=== PATIENT | female | born 1990 | race African-American/Black ===

== ENCOUNTER 2018-04-10 17:02 | Inpatient (IN) | payer OTHER ==
[2018-04-10 17:44] VITALS: BMI 42.9
--- NOTE | 2018-04-10 20:32 | HP ---
CIWA Score - CIWA Score Nausea/Vomitin Muscle Tremors: 4-Moderate,w/Arms Extend Anxiety: 4-Mod. Anxious/Guarded Agitation: 1-Slight > Activity Paroxysmal Sweats: No Perspiration Orientation: 0-Oriented Tacttile Disturbances: 0-None Auditory Disturbances: 0-None Visual Disturbances: 0-None Headache: 4-Moderately Severe CIWA-Ar Total Score: 15 Admission ROS S - HPI Chief Complaint: alcohol withdrawal symptoms Allergies/Adverse Reactions: Allergies Allergy/AdvReac Type Severity Reaction Status Date / Time No Known Allergies Allergy Verified 04/10/18 20:27 History of Present Illness: 28 years old female with 10 years history of alcohol dependence is seeking admission to detox. Patient has been to previous detox at [facility]. Reports 5 years of sobriety. Patient has medical history of HIV+, depression, anxiety, insomnia, scoliosis and hypertension. Reports suicide attempt in 2010. Denies suicidal and homicidal ideation at this time. Exam Limitations: No Limitations - Ebola screening Have you traveled outside of the country in the last 21 days: No Have you had contact with anyone from an Ebola affected area: No Have you been sick,other than usual withdrawal symptoms: No Do you have a fever: No - Review of Systems Constitutional: Chills, Loss of Appetite, Malaise, Changes in sleep EENT: reports: No Symptoms Reported Respiratory: reports: No Symptoms reported Cardiac: reports: No Symptoms Reported GI: reports: No Symptoms Reported : reports: No Symptoms Reported Musculoskeletal: reports: Joint Pain, Muscle Pain Integumentary: reports: Dryness, Flushing Neuro: reports: Headache, Tremors Endocrine: reports: No Symptoms Reported Hematology: reports: No Symptoms Reported Psychiatric: reports: Anxious, Depressed Other Systems: Reviewed and Negative Patient History - Patient Medical History Hx Anemia: No Hx Asthma: No Hx Chronic Obstructive Pulmonary Disease (COPD): No Hx Cancer: No Hx Cardiac Disorders: No Hx Congestive Heart Failure: No Hx Hypertension: Yes (Not on medication) Hx Hypercholesterolemia: No Hx Pacemaker: No HX Cerebrovascular Accident: No Hx Seizures: No Hx Dementia: No Hx Diabetes: No Hx Gastrointestinal Disorders: No Hx Liver Disease: No Hx Genitourinary Disorders: No Hx Sexually Transmitted Disorders: No Hx Renal Disease (ESRD): No Hx Thyroid Disease: No Hx Human Immunodeficiency Virus (HIV): Yes (HIV+ 2007) Hx Hepatitis C: No Hx Depression: Yes (Not on medication) Hx Suicide Attempt: Yes (Attempt in 2010. Denies suicidal ideation at this time) Hx Bipolar Disorder: No Hx Schizophrenia: No Other Medical History: Scoliosis, Anxiety- Not on medication - Patient Surgical History Past Surgical History: Yes Hx Neurologic Surgery: No Hx Cataract Extraction: No Hx Cardiac Surgery: No Hx Lung Surgery: No Hx Breast Surgery: No Hx Breast Biopsy: No Hx Abdominal Surgery: No Hx Appendectomy: No Hx Cholecystectomy: No Hx Genitourinary Surgery: No Hx Section: Yes (2008 and 2009) Hx Orthopedic Surgery: No Hx Hysterectomy: No Anesthesia Reaction: No - PPD History Previous Implant?: Yes Documented Results: Negative w/o proof Implanted On Prior [facility] Admission?: No PPD to be Administered?: Yes - Reproductive History Patient is a Female of Child Bearing Age (11 -55 yrs old): No (Male) Patient : No - Smoking Cessation Smoking history: Current every day smoker Have you smoked in the past 12 months: Yes Aproximately how many cigarettes per day: 20 Hx Chewing Tobacco Use: No Initiated information on smoking cessation: Yes 'Breaking Loose' booklet given: 04/10/18 - Substance & Tx. History Hx Alcohol Use: Yes Hx Substance Use: Yes Substance Use Type: Alcohol, Marijuana, Opiates Hx Substance Use Treatment: Yes ([facility] - Substances Abused Alcohol Route: Oral Frequency: Daily Amount used: VODKA - 2 QUARTS Age of first use: 15 Date of Last Use: 04/10/18 Marijuana/Hashish Route: Smoking Frequency: 3-6 times per week Amount used: $20 Age of first use: 11 Date of Last Use: 04/10/18 Family Disease History - Family Disease History Family Disease History: Heart Disease: Mother (Intestitial lung disease- ), Respiratory: Mother, Other: Father (MS) Admission Physical Exam BHS - Vital Signs Vital Signs: Vital Signs - 24 hr 04/10/18 17:38 Temperature 97.8 F Pulse Rate 67 Respiratory 18 Rate Blood Pressure 147/86 - Physical General Appearance: Yes: Moderate Distress HEENTM: Yes: EOMI, Normal ENT Inspection, Normocephalic, Normal Voice, LEANDER Respiratory: Yes: Lungs Clear, Normal Breath Sounds, No Respiratory Distress Neck: Yes: Supple Breast: Yes: Breast Exam Deferred Cardiology: Yes: Regular Rhythm, Regular Rate, S1, S2 Abdominal: Yes: Normal Bowel Sounds, Soft Genitourinary: Yes: Within Normal Limits Back: Yes: Normal Inspection Musculoskeletal: Yes: Muscle Pain, Muscle weakness Extremities: Yes: Tremors Neurological: Yes: Alert, Normal Mood/Affect Integumentary: Yes: Warm Lymphatic: Yes: Within Normal Limits - Diagnostic (1) Alcohol dependence with uncomplicated withdrawal Current Visit: Yes Status: Chronic (2) Cannabis dependence, uncomplicated Current Visit: Yes Status: Chronic (3) HIV (human immunodeficiency virus infection) Current Visit: Yes Status: Chronic (4) HTN (hypertension) Current Visit: Yes Status: Chronic Qualifiers: Hypertension type: essential hypertension Qualified Code(s): I10 - Essential (primary) hypertension (5) Depression Current Visit: Yes Status: Chronic Qualifiers: Depression Type: unspecified Qualified Code(s): F32.9 - Major depressive disorder, single episode, unspecified (6) Anxiety Current Visit: Yes Status: Chronic (7) Scoliosis Current Visit: Yes Status: Chronic (8) Insomnia Current Visit: Yes Status: Chronic Cleared for Admission [facility] - Detox or Rehab [facility] Level of Care: Medically Managed Detox Regimen/Protocol: Librium [facility] Breath Alcohol Content Breath Alcohol Content: 0 Urine Pregancy Test - Result Urine Test Results: Negative- NO Line Present Urine Drug Screen - Results Drug Screen Negative: No Urine Drug Screen Results: THC-Marijuana, MTD-Methadone
[2018-04-10] MEDS ORDERED: NICOTINE POLACRILEX 2 MG GUM BC PRN (20:52)
[2018-04-10] MEDS ORDERED: LOPERAMIDE HCL 2 MG CAPSULE PO PRN (20:52)
[2018-04-10] MEDS ORDERED: ACETAMINOPHEN 325 MG TABLET (FP) PO PRN (20:52)
[2018-04-10] MEDS ORDERED: MAGNESIUM CITRATE 300 ML BOTTLE PO PRN (20:52)
[2018-04-10] MEDS ORDERED: IBUPROFEN 400 MG TABLET (FP) PO PRN (20:52)
[2018-04-10] MEDS ORDERED: guaiFENesin/D-METHORPHAN HB 10 ML UNIT-DOSE CUPS PO PRN (20:52)
[2018-04-10] MEDS ORDERED: chlordiazePOXIDE HCL 25 MG CAPSULE PO PRN (20:52)
[2018-04-10] MEDS ORDERED: P-EPHED 60MG/TRIPROLIDI 2.5MG TABLET PO PRN (20:52)
[2018-04-10] MEDS ORDERED: MAG HYDROX/AL HYDROX/SIMETH 30 ML UNIT-DOSE CUP PO PRN (20:52)
[2018-04-10] MEDS ORDERED: MAGNESIUM HYDROX 2400MG/30ML ORAL SUSPENSION 30 ML CUP PO PRN (20:52)
[2018-04-10] MEDS ORDERED: MENTHOL/PHENOL 1 EACH UD MM PRN (20:52)
[2018-04-10] MEDS ORDERED: MELATONIN 5 MG TABLETS PO PRN (22:00)
[2018-04-10] MEDS: chlordiazePOXIDE HCL 25 MG CAPSULE PO SCH (23:58)
[2018-04-10] MEDS: THIAMINE HCL 100 MG TABLET (FP) PO SCH (23:59)
[2018-04-11] MEDS: chlordiazePOXIDE HCL 25 MG CAPSULE PO SCH ×4 (06:29→22:37)
--- NOTE | 2018-04-11 09:43 | PN ---
S CIWA - CIWA Score Nausea/Vomitin-Mild Nausea/No Vomiting Muscle Tremors: 4-Moderate,w/Arms Extend Anxiety: 3 Agitation: 3 Paroxysmal Sweats: 1-Minimal Palms Moist Orientation: 0-Oriented Tacttile Disturbances: 1-Very Mild Itch/Numbness Auditory Disturbances: 0-None Visual Disturbances: 0-None Headache: 0-None Present CIWA-Ar Total Score: 13 BHS Progress Note (SOAP) Subjective: sweat tremor anxiety restlessness gi distress trouble sleep at night Objective: 04/11/18 09:41 Vital Signs Temperature 98.1 F 04/11/18 09:24 Pulse Rate 84 04/11/18 09:24 Respiratory Rate 18 04/11/18 09:24 Blood Pressure 129/66 04/11/18 09:24 O2 Sat by Pulse Oximetry (%) 04/11/18 09:42 lab not available at this time Assessment: 04/11/18 09:42 withdrawal sx Plan: continue detox
[2018-04-11 10:05] LABS: HEMATOCRIT 33.6 % (32.4-45.2); HEMOGLOBIN 11.1 GM/dL (10.7-15.3); MCH 29.2 pg (25.7-33.7); MCHC 33.2 g/dl (32.0-36.0); MEAN CELL VOLUME 88.1 fl (80-96); MEAN PLT VOLUME 8.2 fl (7.5-11.1); PLATELET COUNT 231 K/MM3 (134-434); RBC 3.81 M/mm3 (3.60-5.2); RDW 13.2 % (11.6-15.6); WHITE BLOOD COUNT 6.7 K/mm3 (4.0-10.0)
[2018-04-11 10:19] LABS: CHLORIDE 107 mmol/L (98-107); SODIUM 140 mmol/L (136-145)
[2018-04-11] MEDS: NICOTINE 14 MG/24 HOURS TOPICAL PATCH TD SCH (10:44)
[2018-04-11] MEDS: PRENATAL VITAMINS W/ FOLIC ACID TABLET (FP) PO SCH (10:44)
[2018-04-11 11:15] LABS: ALBUMIN 3.4 g/dl (3.4-5.0); ALK PHOS 67 U/L (45-117); ANION GAP 7 (8-16); BILIRUBIN,TOTAL 0.5 mg/dL (0.2-1.0); BLOOD UREA NITROGEN 9 mg/dL (7-18); CALCIUM 8.6 mg/dL (8.5-10.1); CO2 26 mmol/L (21-32); CREATININE 0.7 mg/dL (0.55-1.02); GLUCOSE,RANDOM 95 mg/dL (74-106); SGOT/AST 15 U/L (15-37); SGPT/ALT 13 U/L (12-78); TOT PROT 7.4 g/dl (6.4-8.2)
--- NOTE | 2018-04-11 16:23 | EKG ---
Test Reason : Blood Pressure : / mmHG Vent. Rate : 066 BPM Atrial Rate : 066 BPM P-R Int : 126 ms QRS Dur : 096 ms QT Int : 388 ms P-R-T Axes : 024 019 024 degrees QTc Int : 406 ms NORMAL SINUS RHYTHM NORMAL ECG NO PREVIOUS ECGS AVAILABLE Confirmed by MD Lon, Mingo ([id number]) on 04/11/2018 4:22:25 PM Referred By: Confirmed By:Mingo Forrest MD
--- NOTE | 2018-04-11 18:13 | CONSULT ---
[facility] Psychiatric Consult - Data Date of interview: 04/11/18 Admission source: [facility] Identifying data: First admission to this 28 y/o AA female seeking etox treatment on for cannabis,alcohol and opioid dependence.Patient is single,a mother of two,domiciled,unemployed and supported on Public Assistance. Substance Abuse History: Confirmed by patient in this session.Details in current [facility] report.Smoking history: Current every day smoker. Have you smoked in the past 12 months: Yes. Aproximately how many cigarettes per day: 20. Hx Chewing Tobacco Use: No. Initiated information on smoking cessation: Yes. ' Breaking Loose' booklet given: 04/10/18. - Substance & Tx. History. Hx Alcohol Use: Yes. Hx Substance Use: Yes. Substance Use Type: Alcohol, Marijuana, Opiates. Hx Substance Use Treatment: Yes ([facility]). - Substances Abused. Alcohol. Route: Oral. Frequency: Daily. Amount used: VODKA - 2 QUARTS. Age of first use: 15. Date of Last Use: 04/10/18. Marijuana/Hashish. Route: Smoking. Frequency: 3-6 times per week. Amount used : $20. Age of first use: 11. Date of Last Use: 04/10/18 Medical History: HIV infection since 2007,obesity,hypertension,scoliosis and a history of two sections. Psychiatric History: Diagnosed wit MDD.Prescribed medications (unable to recall names of the drugs).Patient denies history of psychiatric hospitalizations or OPD care.Ms Shahid indicates that she has a scheduled appointment for intake at the [facility] health clinic in the [place].No reported history of suicide attempts. Physical/Sexual Abuse/Trauma History: Not discussed.Patient declines to elaborate on this domain. Additional Comment: Urine Drug Screen Results: THC-Marijuana, MTD- Methadone.Noted. Mental Status Exam - Mental Status Exam Alert and Oriented to: Time, Place, Person Cognitive Function: Good Patient Appearance: Well Groomed Mood: Hopeful, Euthymic Affect: Appropriate, Normal Range Patient Behavior: Appropriate, Cooperative (friendly) Speech Pattern: Clear, Appropriate Voice Loudness: Normal Thought Process: Intact, Goal Oriented Thought Disorder: Not Present Hallucinations: Denies Suicidal Ideation: Denies Homicidal Ideation: Denies Insight/Judgement: Fair Sleep: Poorly, Difficulty falling asleep Appetite: Good Muscle strength/Tone: Normal Gait/Station: Normal Psychiatric Findings - Problem List ([place] 1, 2,3) (1) Alcohol dependence with uncomplicated withdrawal Current Visit: Yes Status: Acute (2) Cannabis dependence, uncomplicated Current Visit: Yes Status: Acute (3) Nicotine dependence Current Visit: Yes Status: Acute (4) Substance induced mood disorder Current Visit: Yes Status: Acute (5) Insomnia Current Visit: Yes Status: Acute - Initial Treatment Plan Initial Treatment Plan: Psychoeducation.Sleep hygiene discussed in session.Detoxification in progress.Ambien 10 mg po hs prn.Patient is made aware of the risk for parasomnias.Ms Shahid agrees to this careplan.Observation.
[2018-04-11] MEDS: THIAMINE HCL 100 MG TABLET (FP) PO SCH (22:37)
[2018-04-11] MEDS: ZOLPIDEM TARTRATE 5 MG TABLET PO PRN (22:37)
[2018-04-12] MEDS: chlordiazePOXIDE HCL 25 MG CAPSULE PO SCH ×3 (06:00→17:40)
[2018-04-12] MEDS: PRENATAL VITAMINS W/ FOLIC ACID TABLET (FP) PO SCH (11:06)
[2018-04-12] MEDS: NICOTINE 14 MG/24 HOURS TOPICAL PATCH TD SCH (11:07)
--- NOTE | 2018-04-12 11:58 | PN ---
[facility] CIWA - CIWA Score Nausea/Vomitin-Mild Nausea/No Vomiting Muscle Tremors: 4-Moderate,w/Arms Extend Anxiety: 3 Agitation: 2 Paroxysmal Sweats: 1-Minimal Palms Moist Orientation: 0-Oriented Tacttile Disturbances: 1-Very Mild Itch/Numbness Auditory Disturbances: 0-None Visual Disturbances: 0-None Headache: 0-None Present CIWA-Ar Total Score: 12 BHS Progress Note (SOAP) Subjective: sweat tremor anxiety restlessness mild gi distress Objective: 04/12/18 12:00 Vital Signs Temperature 97.9 F 04/12/18 09:22 Pulse Rate 76 04/12/18 09:22 Respiratory Rate 16 04/12/18 09:22 Blood Pressure 124/70 04/12/18 09:22 O2 Sat by Pulse Oximetry (%) Laboratory Last Values WBC 6.7 K/mm3 (4.0-10.0) 04/11/18 07:30 RBC 3.81 M/mm3 (3.60-5.2) 04/11/18 07:30 Hgb 11.1 GM/dL (10.7-15.3) 04/11/18 07:30 Hct 33.6 % (32.4-45.2) 04/11/18 07:30 MCV 88.1 fl (80-96) 04/11/18 07:30 MCH 29.2 pg (25.7-33.7) 04/11/18 07:30 MCHC 33.2 g/dl (32.0-36.0) 04/11/18 07:30 RDW 13.2 % (11.6-15.6) 04/11/18 07:30 Plt Count 231 K/MM3 (134-434) 04/11/18 07:30 MPV 8.2 fl (7.5-11.1) 04/11/18 07:30 Sodium 140 mmol/L (136-145) 04/11/18 07:30 Potassium 4.0 mmol/L (3.5-5.1) 04/11/18 07:30 Chloride 107 mmol/L (98-107) 04/11/18 07:30 Carbon Dioxide 26 mmol/L (21-32) 04/11/18 07:30 Anion Gap 7 (8-16) L 04/11/18 07:30 BUN 9 mg/dL (7-18) 04/11/18 07:30 Creatinine 0.7 mg/dL (0.55-1.02) 04/11/18 07:30 Creat Clearance w eGFR > 60 (>60) 04/11/18 07:30 Random Glucose 95 mg/dL (74-106) 04/11/18 07:30 Calcium 8.6 mg/dL (8.5-10.1) 04/11/18 07:30 Total Bilirubin 0.5 mg/dL (0.2-1.0) 04/11/18 07:30 AST 15 U/L (15-37) 04/11/18 07:30 ALT 13 U/L (12-78) 04/11/18 07:30 Alkaline Phosphatase 67 U/L (45-117) 04/11/18 07:30 Total Protein 7.4 g/dl (6.4-8.2) 04/11/18 07:30 Albumin 3.4 g/dl (3.4-5.0) 04/11/18 07:30 RPR Titer Nonreactive (NONREACTIVE) 04/11/18 07:30 lab noted Assessment: 04/12/18 12:00 withdrawal sx Plan: continue detox
[2018-04-12] MEDS: ZOLPIDEM TARTRATE 5 MG TABLET PO PRN (22:34)
[2018-04-12] MEDS: chlordiazePOXIDE 5 MG CAPSULE PO SCH (22:34)
[2018-04-12] MEDS: THIAMINE HCL 100 MG TABLET (FP) PO SCH (22:34)
[2018-04-13] MEDS: chlordiazePOXIDE 5 MG CAPSULE PO SCH ×2 (05:53→10:26)
[2018-04-13 06:16] VITALS: PULSE 85; TEMP 97.9
--- NOTE | 2018-04-13 09:18 | PN ---
[facility] Progress Note (SOAP) Subjective: feeling better no sweat no tremor tolerated food and fluid well social with roommate in hallway wants to go to [facility] for recovery Objective: 04/13/18 09:15 Vital Signs Temperature 97.9 F 04/13/18 06:00 Pulse Rate 85 04/13/18 06:00 Respiratory Rate 18 04/13/18 06:00 Blood Pressure 116/56 04/13/18 06:00 O2 Sat by Pulse Oximetry (%) Laboratory Last Values WBC 6.7 K/mm3 (4.0-10.0) 04/11/18 07:30 RBC 3.81 M/mm3 (3.60-5.2) 04/11/18 07:30 Hgb 11.1 GM/dL (10.7-15.3) 04/11/18 07:30 Hct 33.6 % (32.4-45.2) 04/11/18 07:30 MCV 88.1 fl (80-96) 04/11/18 07:30 MCH 29.2 pg (25.7-33.7) 04/11/18 07:30 MCHC 33.2 g/dl (32.0-36.0) 04/11/18 07:30 RDW 13.2 % (11.6-15.6) 04/11/18 07:30 Plt Count 231 K/MM3 (134-434) 04/11/18 07:30 MPV 8.2 fl (7.5-11.1) 04/11/18 07:30 Sodium 140 mmol/L (136-145) 04/11/18 07:30 Potassium 4.0 mmol/L (3.5-5.1) 04/11/18 07:30 Chloride 107 mmol/L (98-107) 04/11/18 07:30 Carbon Dioxide 26 mmol/L (21-32) 04/11/18 07:30 Anion Gap 7 (8-16) L 04/11/18 07:30 BUN 9 mg/dL (7-18) 04/11/18 07:30 Creatinine 0.7 mg/dL (0.55-1.02) 04/11/18 07:30 Creat Clearance w eGFR > 60 (>60) 04/11/18 07:30 Random Glucose 95 mg/dL (74-106) 04/11/18 07:30 Calcium 8.6 mg/dL (8.5-10.1) 04/11/18 07:30 Total Bilirubin 0.5 mg/dL (0.2-1.0) 04/11/18 07:30 AST 15 U/L (15-37) 04/11/18 07:30 ALT 13 U/L (12-78) 04/11/18 07:30 Alkaline Phosphatase 67 U/L (45-117) 04/11/18 07:30 Total Protein 7.4 g/dl (6.4-8.2) 04/11/18 07:30 Albumin 3.4 g/dl (3.4-5.0) 04/11/18 07:30 RPR Titer Nonreactive (NONREACTIVE) 04/11/18 07:30 lab noted health teaching on hiv ART Assessment: 04/13/18 09:16 mild withdrawal sx HIV Plan: medically supervised detox encourage the patient to follow up with infectious disease specialist in the [facility] facility for HIV management
[2018-04-13 09:25] VITALS: BP 110/50
[2018-04-13] MEDS: PRENATAL VITAMINS W/ FOLIC ACID TABLET (FP) PO SCH (10:26)
[2018-04-13] MEDS: NICOTINE 14 MG/24 HOURS TOPICAL PATCH TD SCH (10:27)
[2018-04-13] MEDS ORDERED: chlordiazePOXIDE HCL 10 MG CAPSULE PO SCH (23:00)
== END 2018-04-13 12:50 | disposition other institution (70) | DRG 775 ==
LOC: YASAS 17:02 → Y3E 20:57 → Y6N 22:27
PROVIDERS: ADMIT Psychiatry & Neurology Psychiatry; ATTEND Surgery
PROC: HZ2ZZZZ Detoxification Services for Substance Abuse Treatment (ICD-10-PCS; principal; 2018-04-10)
DX: F10.230 Alcohol dependence with withdrawal, uncomplicated (principal); F17.210 Nicotine dependence, cigarettes, uncomplicated; F19.24 Other psychoactive substance dependence with psychoactive substance-induced mood disorder; G47.00 Insomnia, unspecified; I10 Essential (primary) hypertension; Z91.5 Personal history of self-harm
CPT/HCPCS: 36415; 80053; 85027; 86593; 93005; 93010

== ENCOUNTER 2018-04-13 11:28 | Inpatient (IN) | payer OTHER ==
--- NOTE | 2018-04-13 11:41 | HP ---
[facility] Rehab Assess/Revision - Admission History Admitted to Rehab from: [facility] Date of Admission to Rehab: 04/13/18 - Findings Detox History & Physical reviewed: Yes Concur with findings: Yes Comments/Additional Findings: transferred from detox to rehab admission as per protocol Inpatient Rehab Admission - Rehab Admission Criteria Previous failed treatment: Yes Poor recovery environment: Yes Comorbidities: Yes Lacks judgement: No Patient is meeting Inpatient Rehab admission criteria:: Yes
[2018-04-13] MEDS ORDERED: LOPERAMIDE HCL 2 MG CAPSULE PO PRN (11:42)
[2018-04-13] MEDS ORDERED: MENTHOL/PHENOL 1 EACH UD MM PRN (11:42)
[2018-04-13] MEDS ORDERED: ACETAMINOPHEN 325 MG TABLET (FP) PO PRN (11:42)
[2018-04-13] MEDS ORDERED: MAGNESIUM CITRATE 300 ML BOTTLE PO PRN (11:42)
[2018-04-13] MEDS ORDERED: MAGNESIUM HYDROX 2400MG/30ML ORAL SUSPENSION 30 ML CUP PO PRN (11:42)
[2018-04-13] MEDS ORDERED: P-EPHED 60MG/TRIPROLIDI 2.5MG TABLET PO PRN (11:42)
[2018-04-13] MEDS ORDERED: MAG HYDROX/AL HYDROX/SIMETH 30 ML UNIT-DOSE CUP PO PRN (11:42)
[2018-04-13] MEDS ORDERED: guaiFENesin/D-METHORPHAN HB 10 ML UNIT-DOSE CUPS PO PRN (11:42)
[2018-04-13 12:43] VITALS: BMI 43.7
--- NOTE | 2018-04-13 14:22 | PN ---
S Progress Note Note: Vital Signs - 24 hr 04/13/18 04/13/18 12:37 12:42 Temperature 98.0 F 98.0 F Pulse Rate 99 H 99 H Respiratory 18 18 Rate Blood Pressure 135/86 135/86 Patient reports hx of HTN and does not recall meds taking at home. External home medication list review and no BP medications listed patient will be monitor and will be treated accordingly
[2018-04-13] MEDS ORDERED: NICOTINE 14 MG/24 HOURS TOPICAL PATCH TD PRN (15:15)
[2018-04-13] MEDS: THIAMINE HCL 100 MG TABLET (FP) PO SCH (21:37)
[2018-04-13] MEDS: MELATONIN 5 MG TABLETS PO PRN (21:37)
[2018-04-13 23:08] LABS: URINE APPEARANCE CLEAR; URINE BILIRUBIN NEGATIVE (<2.0 mg/dL); URINE BLOOD NEGATIVE (NEGATIVE); URINE COLOR YELLOW; URINE GLUCOSE (UA) NEGATIVE (NEGATIVE); URINE KETONE NEGATIVE (NEGATIVE); URINE LEUK ESTERASE NEGATIVE (NEGATIVE); URINE NITRITE NEGATIVE (NEGATIVE); URINE PROTEIN NEGATIVE (NEGATIVE); URINE UROBILINOGEN 4.0 E.U/dl mg/dL (0.2-1.0)
[2018-04-14] MEDS: IBUPROFEN 400 MG TABLET (FP) PO PRN (08:28)
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
[2018-04-14] MEDS: PRENATAL VITAMINS W/ FOLIC ACID TABLET (FP) PO SCH (10:50)
[2018-04-14] MEDS: VENLAFAXINE HCL 37.5 MG E.R. CAPSULE (FP) PO SCH (11:37)
[2018-04-14] MEDS: NICOTINE POLACRILEX 2 MG GUM BUC PRN (11:39)
[2018-04-14] MEDS: hydrOXYzine PAMOATE 50 MG CAPSULE (FP) PO PRN ×2 (11:40→17:59)
[2018-04-14] MEDS ORDERED: PT OWN MED DRAWER 7, Y5N ONE (11:43)
[2018-04-14] MEDS: THIAMINE HCL 100 MG TABLET (FP) PO SCH (21:15)
[2018-04-14] MEDS: GABAPENTIN 400 MG CAPSULE (FP) PO SCH (21:15)
[2018-04-15] MEDS ORDERED: PT OWN MED DRAWER 7, Y5N ONE (09:07)
[2018-04-15] MEDS: VENLAFAXINE HCL 37.5 MG E.R. CAPSULE (FP) PO SCH (09:36)
[2018-04-15] MEDS: PRENATAL VITAMINS W/ FOLIC ACID TABLET (FP) PO SCH (09:36)
[2018-04-15] MEDS: hydrOXYzine PAMOATE 50 MG CAPSULE (FP) PO PRN (12:39)
[2018-04-15] MEDS: NICOTINE POLACRILEX 2 MG GUM BUC PRN (12:40)
[2018-04-15] MEDS: GABAPENTIN 400 MG CAPSULE (FP) PO SCH (22:06)
[2018-04-15] MEDS: THIAMINE HCL 100 MG TABLET (FP) PO SCH (22:06)
[2018-04-16] MEDS ORDERED: PT OWN MED DRAWER 7, Y5N ONE ×2 (08:47→16:10)
[2018-04-16] MEDS: PRENATAL VITAMINS W/ FOLIC ACID TABLET (FP) PO SCH (10:11)
[2018-04-16] MEDS: VENLAFAXINE HCL 37.5 MG E.R. CAPSULE (FP) PO SCH (10:11)
[2018-04-16] MEDS: IBUPROFEN 400 MG TABLET (FP) PO PRN (11:35)
[2018-04-16] MEDS: hydrOXYzine PAMOATE 50 MG CAPSULE (FP) PO PRN ×2 (11:35→17:42)
[2018-04-16] MEDS ORDERED: IBUPROFEN 400 MG TABLET (FP) PO PRN (13:20)
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
[2018-04-16] MEDS: METHYL SALICYLATE/MENTHOL OINT 30 GM TUBE TP SCH (17:41)
[2018-04-16] MEDS: IBUPROFEN 600 MG TABLET (FP) PO PRN (20:14)
[2018-04-16] MEDS: THIAMINE HCL 100 MG TABLET (FP) PO SCH (21:42)
[2018-04-16] MEDS: GABAPENTIN 400 MG CAPSULE (FP) PO SCH (21:43)
[2018-04-17] MEDS ORDERED: PT OWN MED DRAWER 7, Y5N ONE (08:31)
[2018-04-17] MEDS: IBUPROFEN 600 MG TABLET (FP) PO PRN (08:53)
[2018-04-17] MEDS: hydrOXYzine PAMOATE 50 MG CAPSULE (FP) PO PRN ×2 (09:09→18:25)
[2018-04-17] MEDS: METHYL SALICYLATE/MENTHOL OINT 30 GM TUBE TP SCH (09:09)
[2018-04-17] MEDS: VENLAFAXINE HCL 37.5 MG E.R. CAPSULE (FP) PO SCH (09:09)
[2018-04-17] MEDS: PRENATAL VITAMINS W/ FOLIC ACID TABLET (FP) PO SCH (09:09)
[2018-04-17] MEDS: THIAMINE HCL 100 MG TABLET (FP) PO SCH (21:46)
[2018-04-17] MEDS: GABAPENTIN 400 MG CAPSULE (FP) PO SCH (21:46)
[2018-04-17] MEDS: MELATONIN 5 MG TABLETS PO PRN (21:47)
[2018-04-18] MEDS: VENLAFAXINE HCL 37.5 MG E.R. CAPSULE (FP) PO SCH (10:32)
[2018-04-18] MEDS: METHYL SALICYLATE/MENTHOL OINT 30 GM TUBE TP SCH (10:33)
[2018-04-18] MEDS: PRENATAL VITAMINS W/ FOLIC ACID TABLET (FP) PO SCH (10:33)
[2018-04-18] MEDS: hydrOXYzine PAMOATE 50 MG CAPSULE (FP) PO PRN ×2 (12:54→21:48)
--- NOTE | 2018-04-18 14:59 | PN ---
[facility] Progress Note Note: Vital Signs Temperature 98.2 F 04/18/18 06:56 Pulse Rate 106 H 04/18/18 10:20 Respiratory Rate 18 04/18/18 06:56 Blood Pressure 116/79 04/18/18 10:20 O2 Sat by Pulse Oximetry (%) Laboratory Last Values Urine Color Yellow 04/13/18 22:30 Urine Appearance Clear 04/13/18 22:30 Urine pH 7.0 (5.0-8.0) 04/13/18 22:30 Ur Specific [place] 1.023 (1.001-1.035) 04/13/18 22:30 Urine Protein Negative (NEGATIVE) 04/13/18 22:30 Urine Glucose (UA) Negative (NEGATIVE) 04/13/18 22:30 Urine Ketones Negative (NEGATIVE) 04/13/18 22:30 Urine Blood Negative (NEGATIVE) 04/13/18 22:30 Urine Nitrite Negative (NEGATIVE) 04/13/18 22:30 Urine Bilirubin Negative (<2.0 mg/dL) 04/13/18 22:30 Urine Urobilinogen 4.0 e.u/dl mg/dL (0.2-1.0) H 04/13/18 22:30 Ur Leukocyte Esterase Negative (NEGATIVE) 04/13/18 22:30 Patient is a 28 yo female c/o of anxiety and "not feeling well." Patient reports she has not taken her HIV medications for over 6 months. Reports at night she feels chest pressure that comes and goes. Denies hx of asthma and respiratory disease. Patient was seen by psych and tx for anxiety. Denies SOB, CP, vertigo or paresthesia A/P patient AO x3, in no apparent distress, anxious s1 and s2, no JVD Lungs clear through out Skin intact, no edema or erythema full ROM, no joint erythema -anxiety Plan: - increase fluids - follow up with psych - patient educated on the importance to follow up with her PMD and HIV specialist, discussed risk of discontinuing HIV treatment. Patient verbalized understanding. - continue to monitor
[2018-04-18] MEDS: THIAMINE HCL 100 MG TABLET (FP) PO SCH (21:48)
[2018-04-18] MEDS: MELATONIN 5 MG TABLETS PO PRN (21:48)
[2018-04-18] MEDS: GABAPENTIN 400 MG CAPSULE (FP) PO SCH (21:48)
[2018-04-19] MEDS: hydrOXYzine PAMOATE 50 MG CAPSULE (FP) PO PRN ×2 (08:36→21:47)
[2018-04-19] MEDS ORDERED: PT OWN MED DRAWER 7, Y5N ONE ×2 (08:45→11:29)
[2018-04-19] MEDS: PRENATAL VITAMINS W/ FOLIC ACID TABLET (FP) PO SCH (10:25)
[2018-04-19] MEDS: VENLAFAXINE HCL 37.5 MG E.R. CAPSULE (FP) PO SCH (10:25)
[2018-04-19] MEDS: METHYL SALICYLATE/MENTHOL OINT 30 GM TUBE TP SCH (10:25)
[2018-04-19] MEDS ORDERED: VENLAFAXINE HCL 37.5 MG E.R. CAPSULE (FP) PO ONE (11:00)
[2018-04-19] MEDS: GABAPENTIN 400 MG CAPSULE (FP) PO SCH (21:46)
[2018-04-19] MEDS: THIAMINE HCL 100 MG TABLET (FP) PO SCH (21:46)
[2018-04-19] MEDS: MELATONIN 5 MG TABLETS PO PRN (21:48)
[2018-04-20] MEDS: hydrOXYzine PAMOATE 50 MG CAPSULE (FP) PO PRN ×2 (08:39→21:49)
[2018-04-20] MEDS: VENLAFAXINE HCL 75 MG E.R. CAPSULES (FP) PO SCH (09:45)
[2018-04-20] MEDS: PRENATAL VITAMINS W/ FOLIC ACID TABLET (FP) PO SCH (09:45)
[2018-04-20] MEDS: METHYL SALICYLATE/MENTHOL OINT 30 GM TUBE TP SCH (09:46)
[2018-04-20] MEDS: GABAPENTIN 400 MG CAPSULE (FP) PO SCH (21:47)
[2018-04-20] MEDS: THIAMINE HCL 100 MG TABLET (FP) PO SCH (21:47)
[2018-04-20] MEDS: MELATONIN 5 MG TABLETS PO PRN (21:49)
[2018-04-21] MEDS: PRENATAL VITAMINS W/ FOLIC ACID TABLET (FP) PO SCH (10:05)
[2018-04-21] MEDS: VENLAFAXINE HCL 75 MG E.R. CAPSULES (FP) PO SCH (10:05)
[2018-04-21] MEDS: METHYL SALICYLATE/MENTHOL OINT 30 GM TUBE TP SCH (10:05)
[2018-04-21] MEDS: hydrOXYzine PAMOATE 50 MG CAPSULE (FP) PO PRN ×2 (10:05→21:40)
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
[2018-04-21] MEDS: THIAMINE HCL 100 MG TABLET (FP) PO SCH (21:40)
[2018-04-21] MEDS: GABAPENTIN 400 MG CAPSULE (FP) PO SCH (21:40)
[2018-04-21] MEDS: MELATONIN 5 MG TABLETS PO PRN (21:40)
[2018-04-22] MEDS: PRENATAL VITAMINS W/ FOLIC ACID TABLET (FP) PO SCH (09:15)
[2018-04-22] MEDS: VENLAFAXINE HCL 75 MG E.R. CAPSULES (FP) PO SCH (09:15)
[2018-04-22] MEDS: METHYL SALICYLATE/MENTHOL OINT 30 GM TUBE TP SCH (09:16)
[2018-04-22] MEDS: hydrOXYzine PAMOATE 50 MG CAPSULE (FP) PO PRN ×2 (09:16→21:41)
[2018-04-22] MEDS: GABAPENTIN 400 MG CAPSULE (FP) PO SCH (21:40)
[2018-04-22] MEDS: MELATONIN 5 MG TABLETS PO PRN (21:41)
[2018-04-22] MEDS: THIAMINE HCL 100 MG TABLET (FP) PO SCH (21:41)
[2018-04-23] MEDS: hydrOXYzine PAMOATE 50 MG CAPSULE (FP) PO PRN ×2 (09:10→21:22)
[2018-04-23] MEDS: VENLAFAXINE HCL 75 MG E.R. CAPSULES (FP) PO SCH (09:10)
[2018-04-23] MEDS: PRENATAL VITAMINS W/ FOLIC ACID TABLET (FP) PO SCH (09:10)
[2018-04-23] MEDS: METHYL SALICYLATE/MENTHOL OINT 30 GM TUBE TP SCH (09:11)
[2018-04-23] MEDS: MELATONIN 5 MG TABLETS PO PRN (21:22)
[2018-04-23] MEDS: GABAPENTIN 400 MG CAPSULE (FP) PO SCH (21:22)
[2018-04-23] MEDS: THIAMINE HCL 100 MG TABLET (FP) PO SCH (21:23)
[2018-04-24] MEDS ORDERED: PT OWN MED DRAWER 7, Y5N ONE (09:10)
[2018-04-24] MEDS: METHYL SALICYLATE/MENTHOL OINT 30 GM TUBE TP SCH (09:51)
[2018-04-24] MEDS: VENLAFAXINE HCL 75 MG E.R. CAPSULES (FP) PO SCH (09:51)
[2018-04-24] MEDS: PRENATAL VITAMINS W/ FOLIC ACID TABLET (FP) PO SCH ×2 (09:51→09:53)
[2018-04-24] MEDS: hydrOXYzine PAMOATE 50 MG CAPSULE (FP) PO PRN ×2 (09:52→21:59)
[2018-04-24] MEDS: GABAPENTIN 400 MG CAPSULE (FP) PO SCH (21:59)
[2018-04-24] MEDS: THIAMINE HCL 100 MG TABLET (FP) PO SCH (21:59)
[2018-04-24] MEDS: MELATONIN 5 MG TABLETS PO PRN (21:59)
[2018-04-24] MEDS: NICOTINE POLACRILEX 2 MG GUM BUC PRN (23:36)
[2018-04-25] MEDS: hydrOXYzine PAMOATE 50 MG CAPSULE (FP) PO PRN ×2 (10:36→21:47)
[2018-04-25] MEDS: METHYL SALICYLATE/MENTHOL OINT 30 GM TUBE TP SCH (10:37)
[2018-04-25] MEDS: VENLAFAXINE HCL 75 MG E.R. CAPSULES (FP) PO SCH (10:37)
[2018-04-25] MEDS: PRENATAL VITAMINS W/ FOLIC ACID TABLET (FP) PO SCH (10:37)
[2018-04-25] MEDS ORDERED: COLLOIDAL OATMEAL 1 BAR EACH TP PRN (14:15)
--- NOTE | 2018-04-25 14:17 | PN ---
S Progress Note Note: Vital Signs Temperature 97.9 F 04/25/18 07:20 Pulse Rate 93 H 04/25/18 07:20 Respiratory Rate 18 04/25/18 07:20 Blood Pressure 107/72 04/25/18 07:20 O2 Sat by Pulse Oximetry (%) c/o of dry and sensitive skin with pruritus. aveeno sop top increase fluid s continue to monitor
[2018-04-25] MEDS: GABAPENTIN 400 MG CAPSULE (FP) PO SCH (21:47)
[2018-04-25] MEDS: MELATONIN 5 MG TABLETS PO PRN (21:48)
[2018-04-25] MEDS: NICOTINE POLACRILEX 2 MG GUM BUC PRN (21:49)
[2018-04-25] MEDS: THIAMINE HCL 100 MG TABLET (FP) PO SCH (21:49)
[2018-04-26] MEDS: IBUPROFEN 600 MG TABLET (FP) PO PRN (06:18)
[2018-04-26] MEDS: PRENATAL VITAMINS W/ FOLIC ACID TABLET (FP) PO SCH (10:35)
[2018-04-26] MEDS: VENLAFAXINE HCL 75 MG E.R. CAPSULES (FP) PO SCH (10:35)
[2018-04-26] MEDS: METHYL SALICYLATE/MENTHOL OINT 30 GM TUBE TP SCH (10:35)
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
[2018-04-26] MEDS: hydrOXYzine PAMOATE 50 MG CAPSULE (FP) PO PRN ×2 (10:36→21:37)
--- NOTE | 2018-04-26 16:26 | PN ---
Psychiatric Progress Note Vital Signs: Vital Signs Period Temp Pulse Resp BP Sys/Gabriel Pulse Ox Last 24 Hr 98.0 F 93 18-18 121/85 Date of Session: 04/26/18 Chief Complaint:: Discharge visit HPI: Patient addressed Opioid,Alcohol and Cocaine dependence comorbid with PTSD. ROS: HIV+.HTN.Scoliosis. Current Medications: Active Medications Generic Name Dose Route Start Last Admin Trade Name Freq PRN Reason Stop Dose Admin Acetaminophen 650 mg 04/13/18 11:42 Tylenol - PO Q4H PRN FEVER Al Hydroxide/Mg Hydroxide 30 ml 04/13/18 11:42 Mylanta Oral Suspension - PO Q6H PRN DYSPEPSIA Colloidal Oatmeal 1 applic 04/25/18 14:15 04/25/18 15:06 Aveeno Soap - TP 1 bar DAILY PRN Administration HYGEINE Eucalyptus/Menthol/Phenol/Sorbitol 1 each 04/13/18 11:42 Cepastat Lozenge - MM Q4H PRN SORE THROAT Gabapentin 800 mg 04/19/18 22:00 04/25/18 21:47 Neurontin - PO 800 mg HS CULLEN Administration Guaifenesin 10 ml 04/13/18 11:42 Robitussin Dm - PO Q6H PRN COUGH Hydroxyzine Pamoate 50 mg 04/14/18 10:58 04/26/18 10:36 Vistaril - PO 50 mg Q4H PRN Administration ANXIETY Ibuprofen 600 mg 04/16/18 13:27 04/26/18 06:18 Motrin - PO 600 mg Q6H PRN Administration Pain Level 4-6 Loperamide HCl 4 mg 04/13/18 11:42 Imodium - PO Q6H PRN DIARRHEA Magnesium Citrate 300 ml 04/13/18 11:42 Citroma - PO Q48H PRN CONSTIPATION Magnesium Hydroxide 30 ml 04/13/18 11:42 Milk Of Magnesia - PO DAILY PRN CONSTIPATION Melatonin 5 mg 04/13/18 22:00 04/25/18 21:48 Melatonin PO 5 mg HS PRN Administration INSOMNIA Methyl Salicylate 1 applic 04/16/18 13:30 04/26/18 10:35 Chaitanya-Maya - TP Not Given DAILY CULLEN Nicotine 14 mg 04/13/18 15:15 04/14/18 11:39 Nicoderm Patch - TD 14 mg DAILY PRN Administration WITHDRAWAL(CONT SUBST) Nicotine Polacrilex 2 mg 04/13/18 11:42 04/25/18 21:49 Nicorette Gum - BUC 2 mg Q2H PRN Administration NICOTINE REPLACEMENT RX Multivit/Folic Acid/Iron 1 tab 04/14/18 10:00 04/26/18 10:35 Vitamins (Sjr) - PO Not Given DAILY CULLEN Pseudoephedrine/Triprolidine 1 combo 04/13/18 11:42 Actifed - PO TID PRN NASAL CONGESTION Thiamine HCl 100 mg 04/13/18 22:00 04/25/18 21:49 Vitamin B1 - PO Not Given HS CULLEN Venlafaxine HCl 75 mg 04/20/18 10:00 04/26/18 10:35 Effexor Xr - PO 75 mg DAILY CULLEN Administration Current Side Effect: No Lab tests ordered: No Lab tests reviewed: Yes Provider note:: Patient will be discharged tomorrow 04/27/18.She has met her treatment goals and will continue to address her issues on outpatient basis.Patient reports finding that current medications:Effexor XR 75 mg po daily and Neurontin 800 mg po hs help to cope with anxiety,depression,mood instability.Scripts for 30 days supply provided. Therapy provided focusing on relapse prevention including support,coping skills utlization to maintain recovery. Patient is stable for discharge tomorrow 04/27/18. Total face to face time:: 30 Mental Status Exam - Mental Status Exam Alert and Oriented to: Time, Place, Person Cognitive Function: Grossly Intact Patient Appearance: Well Groomed Mood: Euthymic Affect: Appropriate, Mood Congruent Patient Behavior: Cooperative Speech Pattern: Clear Voice Loudness: Normal Thought Process: Goal Oriented Thought Disorder: Not Present Hallucinations: Denies Suicidal Ideation: Denies Homicidal Ideation: Denies Insight/Judgement: Fair Sleep: Fair Appetite: Good Muscle strength/Tone: Normal Psychiatric Treatment Plan - Problem List (1) HIV (human immunodeficiency virus infection) Current Visit: Yes (2) HTN (hypertension) Current Visit: Yes Qualifiers: Hypertension type: essential hypertension Qualified Code(s): I10 - Essential (primary) hypertension (3) Scoliosis Current Visit: Yes (4) Opioid dependence Current Visit: Yes (5) Substance induced mood disorder Current Visit: Yes (6) Nicotine dependence Current Visit: Yes (7) Alcohol dependence Current Visit: Yes (8) Cannabis dependence Current Visit: Yes (9) PTSD (post-traumatic stress disorder) Current Visit: Yes
[2018-04-26] MEDS: GABAPENTIN 400 MG CAPSULE (FP) PO SCH (21:37)
[2018-04-26] MEDS: MELATONIN 5 MG TABLETS PO PRN (21:37)
[2018-04-26] MEDS: THIAMINE HCL 100 MG TABLET (FP) PO SCH (21:38)
[2018-04-27 06:56] VITALS: BP 107/64; PULSE 90; TEMP 98.5
--- NOTE | 2018-04-27 08:25 | PN ---
[facility]ARG[facility] Progress Note Note: Chart reviewed, patient evaluated, medications sent to pharmacy as per Dr. Schmidt Order dischrge home as directed done
[2018-04-27] MEDS: METHYL SALICYLATE/MENTHOL OINT 30 GM TUBE TP SCH (09:02)
[2018-04-27] MEDS: PRENATAL VITAMINS W/ FOLIC ACID TABLET (FP) PO SCH (09:03)
[2018-04-27] MEDS: hydrOXYzine PAMOATE 50 MG CAPSULE (FP) PO PRN (09:03)
[2018-04-27] MEDS: VENLAFAXINE HCL 75 MG E.R. CAPSULES (FP) PO SCH (09:03)
== END 2018-04-27 09:22 | disposition home or self-care (01) | DRG 772 ==
LOC: YASAS 11:28 → Y3E 11:29
PROVIDERS: ADMIT Psychiatry & Neurology Psychiatry; ATTEND Psychiatry & Neurology Psychiatry
PROC: HZ42ZZZ Group Counseling for Substance Abuse Treatment, Cognitive-Behavioral (ICD-10-PCS; principal; 2018-04-13)
DX: F11.20 Opioid dependence, uncomplicated (principal); F10.20 Alcohol dependence, uncomplicated; F12.20 Cannabis dependence, uncomplicated; F17.210 Nicotine dependence, cigarettes, uncomplicated; F19.24 Other psychoactive substance dependence with psychoactive substance-induced mood disorder; F43.10 Post-traumatic stress disorder, unspecified; F41.9 Anxiety disorder, unspecified; I10 Essential (primary) hypertension; Z21 Asymptomatic human immunodeficiency virus [HIV] infection status; M41.9 Scoliosis, unspecified; E66.9 Obesity, unspecified; Z68.41 Body mass index [BMI] 40.0-44.9, adult; L98.8 Other specified disorders of the skin and subcutaneous tissue; L29.9 Pruritus, unspecified; S61.210A Laceration without foreign body of right index finger without damage to nail, initial encounter; W45.8XXA Other foreign body or object entering through skin, initial encounter; W18.39XA Other fall on same level, initial encounter; Y93.9 Activity, unspecified; Y92.239 Unspecified place in hospital as the place of occurrence of the external cause
CPT/HCPCS: 73562-TC-LT-FY; 73562-TC-RT-FY; 81003